=== PATIENT | male | born 1945 | race Caucasian/White ===

== ENCOUNTER → 2021-07-06 | Outpatient (CLI) | payer MEDICARE, BC ==
[~2021-07-06] MED LIST: ALBU2.5V5 NEB; ALLO300 PO; BUDE6HFA INH; CALCIUM; CYAN500 PO; ERGO400 PO; FINA5 PO; LORATADINE; METO50ER PO; MONT10T PO; RANTIDINE; TAMS.4ER PO; XARELTO20 MG PO
[2021-07-06 13:06] LABS: BASOPHILS ABSOLUTE AUTO 0.04 K/mm3 (0.00-0.23); BASOPHILS PERCENT AUTO 1 % (0-2); EOSINOPHILS ABSOLUTE AUTO 0.27 K/mm3 (0.00-0.68); EOSINOPHILS PERCENT AUTO 5 % (0-6); Hematocrit 45.6 % (37.0-53.0); Hemoglobin 15.3 g/dL (13.5-17.5); IMMATURE GRAN ABSOLUTE AUTO 0.02 K/mm3 (0.00-0.10); IMMATURE GRAN PERCENT AUTO 0 % (0-1); LYMPHOCYTES ABSOLUTE AUTO 1.38 K/mm3 (0.84-5.20); LYMPHOCYTES PERCENT AUTO 25 % (21-46); MONOCYTES ABSOLUTE AUTO 0.87 K/mm3 (0.16-1.47); MONOCYTES PERCENT AUTO 16 % (4-13); Mean Corpuscular HGB Conc 33.6 g/dL (31.5-36.5); Mean Corpuscular Volume 101 fL (80-100); Mean Platelet Volume 10.8 fL (9.1-12.4); NEUTROPHILS ABSOLUTE AUTO 2.95 K/mm3 (1.96-9.15); NEUTROPHILS PERCENT AUTO 53 % (41-73); Platelet Count 181 K/mm3 (150-400); RDW Standard Deviation 52.2 fL (35.1-46.3); White Blood Cell Count 5.53 K/mm3 (4.00-11.30)
[2021-07-06 13:16] LABS: Alanine Aminotransfer (ALT/SGP 35 U/L (12-78); Albumin, Blood 3.8 g/dL (3.4-5.0); Albumin/Globulin Ratio 1.2 (0.8-1.8); Alk Phos 82 U/L (40-126); Anion Gap 5 mmol/L (6-16); Aspartate Aminotrans (AST/SGOT 24 U/L (12-37); Bilirubin, Total 0.8 mg/dL (0.1-1.0); Blood Urea Nitrogen 21 mg/dL (8-24); Bun/Creatinine Ratio 22.3 (12.0-20.0); CO2, Blood 33 mmol/L (21-32); Calcium, Blood 9.8 mg/dL (8.5-10.1); Chloride, Blood 105 mmol/L (98-108); Creatinine, Blood 0.94 mg/dL (0.60-1.20); Globulin, Blood 3.2 g/dL (2.2-4.0); Glomerular Filtration Rate >60 (60-); Glucose, Blood 86 mg/dL (70-99); Potassium, Blood 4.2 mmol/L (3.5-5.5); Sodium, Blood 143 mmol/L (136-145)
[2021-07-06 13:19] LABS: Source, Urine Clean Catch
[2021-07-06 13:25] LABS: Bacteria Many /hpf; Red Blood Cells, Urine 50-100 /hpf (0-2); Squamous Epithelial Cells Few /hpf (Few); White Blood Cells, Urine TNTC /hpf (0-5)
== END | disposition home or self-care (01) ==
LOC: LAB SHORT 12:55
PROVIDERS: General Practice
DX: N39.0 Urinary tract infection, site not specified (principal)
CPT/HCPCS: 80053; 81015; 85025; 87077; 87086; 87186

== ENCOUNTER 2022-08-06 14:08 | Day surgery (SDC) | payer MEDICARE, BC ==
[~2022-08-06] VITALS: Ht 182.9 cm; Wt 110.8 kg
--- NOTE | 2022-08-06 14:42 | NUR ---
08/06/22 1442 Jamila Pearce TETRACAINE DROP PLAACED IN RIGHT EYE AT 1435 PLEDGET PLACED IN RIGTH EYE 1436
== END 2022-08-06 16:10 | disposition home or self-care (01) ==
LOC: ORSCSDS 14:08
PROVIDERS: Ophthalmology
PROC: 08RJ3JZ Replacement of Right Lens with Synthetic Substitute, Percutaneous Approach (ICD-10-PCS; principal; 2022-08-06 15:30)
DX: H25.13 Age-related nuclear cataract, bilateral (principal); H52.201 Unspecified astigmatism, right eye; H52.4 Presbyopia; I10 Essential (primary) hypertension; I25.10 Atherosclerotic heart disease of native coronary artery without angina pectoris; I48.20 Chronic atrial fibrillation, unspecified; Z95.0 Presence of cardiac pacemaker; E78.5 Hyperlipidemia, unspecified; G47.33 Obstructive sleep apnea (adult) (pediatric); J45.909 Unspecified asthma, uncomplicated; J44.9 Chronic obstructive pulmonary disease, unspecified; F32.A Depression, unspecified; Z79.01 Long term (current) use of anticoagulants; Z79.899 Other long term (current) drug therapy; Z87.891 Personal history of nicotine dependence
CPT/HCPCS: J2001; J2250; J3301; J7040; V2632

== ENCOUNTER 2022-08-13 13:37 | Day surgery (SDC) | payer MEDICARE, BC ==
[~2022-08-13] VITALS: Ht 182.9 cm; Wt 109.1 kg
--- NOTE | 2022-08-13 14:18 | NUR ---
08/13/22 1418 Jamila Pearce TETERACAINE DROP PLACED IN THE LEFT EYE AT 1415 PLEDGET PLACED IN LEFT EYE AT 1416 CALL LIGHT WITHIN REACH
--- NOTE | 2022-08-13 15:48 | NUR ---
08/13/22 1548 Dayami Zayas WHILE IN STEPDOWN WHEN TRANSFERRING FROM BED TO RECLINER PT STATED HE FELT DIZZY. PT SAT IN BED A FEW MINUTES AND THEN TRANSFERRED TO RECLINER WITH STAFF SBA AND ATE SOME CRACKERS AND RESTED IN RECLINER. AFTER A FEW MINUTES PT STATED HE STILL FELT A LITTLE DIZZY SO HIS BLOOD PRESSURE WAS TAKEN, IT WAS NEAR HIS PREVIOUS BLOOD PRESSURES AND PRE-OP BLOOD PRESSURES WITH A READING OF 149/90. ACCORDING TO PATIENT THIS HAPPENS SOMETIMES AND HE FELT DIZZY AFTER HIS SURGERY LAST WEEK TOO. RN INFORMED PATIENT THAT HE MIGHT FEEL SLEEPY OR DIZZY OVER THE NEXT 24 HRS LISTED ON HIS DISCHARGE PAPERWORK AND TO MAKE SURE TO MOVE SLOWLY ESPECIALLY WHEN RISING FROM A CHAIR OR OTHER MOVEMENTS. PATIENT VERBALIZED UNDERSTANDING AND EXPRESSED READINESS TO GO HOME. TAKEN TO CAR IN FOR SAFETY.
== END 2022-08-13 15:42 | disposition home or self-care (01) ==
LOC: ORSCSDS 13:37
PROVIDERS: Ophthalmology
PROC: 08RK3JZ Replacement of Left Lens with Synthetic Substitute, Percutaneous Approach (ICD-10-PCS; principal; 2022-08-13 15:00)
DX: H25.12 Age-related nuclear cataract, left eye (principal); H52.202 Unspecified astigmatism, left eye; H52.4 Presbyopia; Z96.1 Presence of intraocular lens; I10 Essential (primary) hypertension; I48.91 Unspecified atrial fibrillation; G47.33 Obstructive sleep apnea (adult) (pediatric); J44.9 Chronic obstructive pulmonary disease, unspecified; N40.0 Benign prostatic hyperplasia without lower urinary tract symptoms; F32.A Depression, unspecified; E66.9 Obesity, unspecified; Z68.32 Body mass index [BMI] 32.0-32.9, adult; Z79.01 Long term (current) use of anticoagulants; Z79.899 Other long term (current) drug therapy; Z87.891 Personal history of nicotine dependence
CPT/HCPCS: J2001; J2250; J3010; J3301; J7040; V2632

== ENCOUNTER 2023-10-13 07:51 | Day surgery (SDC) | payer MEDICARE, BC ==
[~2023-10-13 07:51] MED LIST changes: +Lactated Ringer's 1,000 ML IV SCH
[2023-10-13] MEDS ORDERED: Cymbalta20 MG PO (09:14)
[2023-10-13 09:15] VITALS: BP 137/99
[2023-10-13] MEDS ORDERED: PRAVASTATIN SOD10 MG PO (09:16)
[2023-10-13] MEDS ORDERED: propofoL 60 ML IV ONE (09:25)
--- NOTE | 2023-10-13 09:31 | NUR ---
10/13/23 0931 Lily Summers See Anesthesia record FROM DR. AGUIRRE
[2023-10-13] MEDS ORDERED: Lactated Ringer's 1,000 ML IV ONE (10:14)
[2023-10-13] MEDS ORDERED: Lactated Ringer's 1,000 ML IV SCH (10:20)
[2023-10-13 10:27] VITALS: BP 97/71
[2023-10-13 10:36] VITALS: BP 105/65
[2023-10-13 10:47] VITALS: BP 122/84
--- NOTE | 2023-10-13 10:58 | NUR ---
Discharge instructions reviewed with patient. Patient verbalizes understanding. Copy given to patient to take home. , Rod, at bedside. VSS. No c/o verbalized. Patient agrees to keep follow-up appointment and to resume xarelto in three days per Dr. Gar order.
[2023-10-13 11:03] VITALS: BP 123/85
--- NOTE | 2023-10-13 11:11 | NUR ---
UP TO DRESS. GAIT STEADY. PATIENT DENIES DIZZINESS UPON STANDING.
== END 2023-10-13 23:09 | disposition home or self-care (01) ==
LOC: ORSCMMR 07:51 → ORD 09:30 → ORSCMMR 23:09
PROVIDERS: Internal Medicine Gastroenterology
PROC: 0DBL8ZX Excision of Transverse Colon, Via Natural or Artificial Opening Endoscopic, Diagnostic (ICD-10-PCS; principal; 2023-10-13 09:30)
PROC: 0DBM8ZX Excision of Descending Colon, Via Natural or Artificial Opening Endoscopic, Diagnostic (ICD-10-PCS; principal; 2023-10-13 09:30)
PROC: 0DBK8ZX Excision of Ascending Colon, Via Natural or Artificial Opening Endoscopic, Diagnostic (ICD-10-PCS; principal; 2023-10-13 09:30)
DX: Z12.11 Encounter for screening for malignant neoplasm of colon (principal); Z86.010 Personal history of colon polyps; D12.4 Benign neoplasm of descending colon; D12.3 Benign neoplasm of transverse colon; D12.2 Benign neoplasm of ascending colon; I48.91 Unspecified atrial fibrillation; Z79.01 Long term (current) use of anticoagulants; J45.909 Unspecified asthma, uncomplicated; F32.A Depression, unspecified; N40.0 Benign prostatic hyperplasia without lower urinary tract symptoms; Z95.0 Presence of cardiac pacemaker; Z79.899 Other long term (current) drug therapy
CPT/HCPCS: 88305; J2704; J7120

== ENCOUNTER → 2024-08-06 | Outpatient (CLI) | payer MEDICARE, BC ==
[~2024-08-06] MED LIST changes: +Cymbalta20 MG PO; -Lactated Ringer's 1,000 ML IV SCH; +PRAVASTATIN SOD10 MG PO
[2024-08-06 11:49] LABS: BASOPHILS ABSOLUTE AUTO 0.05 K/mm3 (0.00-0.23); BASOPHILS PERCENT AUTO 1 % (0-2); EOSINOPHILS ABSOLUTE AUTO 0.45 K/mm3 (0.00-0.68); EOSINOPHILS PERCENT AUTO 9 % (0-6); Hematocrit 41.5 % (37.0-53.0); Hemoglobin 13.7 g/dL (13.5-17.5); IMMATURE GRAN ABSOLUTE AUTO 0.02 K/mm3 (0.00-0.10); IMMATURE GRAN PERCENT AUTO 0 % (0-1); LYMPHOCYTES PERCENT AUTO 27 % (21-46); MONOCYTES ABSOLUTE AUTO 0.64 K/mm3 (0.16-1.47); MONOCYTES PERCENT AUTO 13 % (4-13); Mean Corpuscular HGB 32.9 pg (26.0-34.0); Mean Corpuscular Volume 100 fL (80-100); Mean Platelet Volume 10.9 fL (9.1-12.4); NEUTROPHILS ABSOLUTE AUTO 2.56 K/mm3 (1.96-9.15); NEUTROPHILS PERCENT AUTO 50 % (41-73); Platelet Count 173 K/mm3 (150-400); RDW Coefficient Variation 15.2 % (11.7-14.2); RDW Standard Deviation 55.7 fL (35.1-46.3); Red Blood Cell Count 4.17 M/mm3 (4.30-5.90); White Blood Cell Count 5.12 K/mm3 (4.00-11.30)
[2024-08-06 11:59] LABS: Albumin, Blood 3.7 g/dL (3.4-5.0); Albumin/Globulin Ratio 1.2 (0.8-1.8); Bilirubin, Total 0.8 mg/dL (0.1-1.0); Bun/Creatinine Ratio 29.7 (12.0-20.0); Calcium, Blood 9.5 mg/dL (8.5-10.1); Creatinine, Blood 0.91 mg/dL (0.60-1.20); Globulin, Blood 3.2 g/dL (2.2-4.0); Potassium, Blood 4.3 mmol/L (3.5-5.5); Total Protein, Blood 6.9 g/dL (6.4-8.2)
== END ==
LOC: LAB SHORT 11:44
DX: R30.0 Dysuria (principal); R31.9 Hematuria, unspecified
CPT/HCPCS: 80053; 85025; 87086

== ENCOUNTER 2024-12-18 13:31 | Inpatient (IN) | payer MEDICARE, BC ==
[~2024-12-18] VITALS: Ht 180.3 cm; Wt 96.4 kg
[~2024-12-18 13:31] MED LIST changes: -BUDE6HFA INH; +SYMBICORT 160-4.6 GM INH
[2024-12-18] MEDS ORDERED: NS 1,000 ML IV SCH (14:15)
[2024-12-18] MEDS ORDERED: Ondansetron HCl 2 MG / ML 2ML Vial IV ONE (14:15)
[2024-12-18] MEDS ORDERED: Ampicillin Sod/Sulbactam Sod 3 GM in NS 100 ML IV ONE (14:15)
[2024-12-18 14:48] LABS: BASOPHILS ABSOLUTE AUTO 0.04 K/mm3 (0.00-0.23); BASOPHILS PERCENT AUTO 0 % (0-2); EOSINOPHILS PERCENT AUTO 0 % (0-6); Hematocrit 35.6 % (37.0-53.0); Hemoglobin 11.8 g/dL (13.5-17.5); IMMATURE GRAN ABSOLUTE AUTO 0.35 K/mm3 (0.00-0.10); IMMATURE GRAN PERCENT AUTO 2 % (0-1); LYMPHOCYTES ABSOLUTE AUTO 0.92 K/mm3 (0.84-5.20); LYMPHOCYTES PERCENT AUTO 4 % (21-46); MONOCYTES ABSOLUTE AUTO 1.29 K/mm3 (0.16-1.47); MONOCYTES PERCENT AUTO 6 % (4-13); Mean Corpuscular HGB 33.5 pg (26.0-34.0); Mean Corpuscular HGB Conc 33.1 g/dL (31.5-36.5); Mean Corpuscular Volume 101 fL (80-100); Mean Platelet Volume 10.7 fL (9.1-12.4); NEUTROPHILS ABSOLUTE AUTO 18.46 K/mm3 (1.96-9.15); NEUTROPHILS PERCENT AUTO 88 % (41-73); Platelet Count 161 K/mm3 (150-400); RDW Coefficient Variation 14.5 % (11.7-14.2); RDW Standard Deviation 53.3 fL (35.1-46.3); Red Blood Cell Count 3.52 M/mm3 (4.30-5.90); White Blood Cell Count 21.06 K/mm3 (4.00-11.30)
[2024-12-18 15:25] LABS: Albumin, Blood 3.1 g/dL (3.4-5.0); Albumin/Globulin Ratio 0.9 (0.8-1.8); Bilirubin, Total 1.7 mg/dL (0.1-1.0); Bun/Creatinine Ratio 19.4 (12.0-20.0); Calcium, Blood 9.2 mg/dL (8.5-10.1); Creatinine, Blood 1.03 mg/dL (0.60-1.20); Globulin, Blood 3.6 g/dL (2.2-4.0); Potassium, Blood 4.1 mmol/L (3.5-5.5); Total Protein, Blood 6.7 g/dL (6.4-8.2)
[2024-12-18 15:50] LABS: Source, Urine Clean Catch
[2024-12-18 15:58] LABS: Appearance, Urine Cloudy (Clear); Bilirubin, Urine Neg (Neg); Blood, Urine 5+ (Neg); Color, Urine Amber (P-Yellow); Glucose Qualitative, Urine Neg (Neg); Ketones, Urine 1+ (Neg); Leukocyte Esterase, Urine 1+ (Neg); Nitrite, Urine Neg (Neg); Protein, Urine 3+ (Neg); Specific Gravity, Urine 1.015 (1.003-1.022); Urobilinogen, Urine 2+ (Normal)
[2024-12-18 16:08] LABS: Influenza A, PCR NEGATIVE (NEGATIVE); Influenza B, PCR NEGATIVE (NEGATIVE); Resp Syncytial Virus, PCR NEGATIVE (NEGATIVE); SARS-Cov-2 (COVID-19) PCR, MMC NEGATIVE (NEGATIVE)
[2024-12-18 16:10] LABS: Bacteria Rare /hpf; Squamous Epithelial Cells Few /hpf (Few)
[2024-12-18 16:11] LABS: Red Blood Cells, Urine 50-100 /hpf (0-2)
[2024-12-18] MEDS ORDERED: Rivaroxaban 10 MG Tab PO SCH (18:00)
[2024-12-18] MEDS ORDERED: Lactated Ringer's 1,000 ML IV SCH (18:30)
[2024-12-18] MEDS ORDERED: Formoterol/Mometasone MDI 5/200 mcg 13 GM INH SCH (18:35)
--- NOTE | 2024-12-18 18:35 | NUR ---
PT ARRIVED TO UNIT VIA GURNEY FROM ED. HE AMBULATED TO BED W/MINIMAL ASSISTANCE. OBTAINED VS AND WEIGHT. ADMINISTERED MEDS ORDERED. PT IS A&Ox4 AND ABLE TO MAKE NEEDS KNOWN, HE IS SLIGHTLY HARD OF HEARING. HE IS ON RA W/O2 SATS >90%. FAMILY @ BEDSIDE. NO NEEDS OR CONCERNS NOTED @ THIS TIME. BED IN LOW POSITION, CALL LIGHT AND PERSONAL BELONGINGS IN REACH.
[2024-12-18 18:59] VITALS: BP 107/68
[2024-12-18] MEDS ORDERED: Ampicillin Sod/Sulbactam Sod 3 GM in NS 100 ML IV SCH (19:30)
[2024-12-18 19:40] VITALS: BP 106/54
[2024-12-18] MEDS ORDERED: Lactobacil 2-S.Thermo-Bifido 1 1 Cap PO SCH (21:00)
[2024-12-18] MEDS ORDERED: Pravastatin Sodium 20 MG Tab PO SCH (21:00)
[2024-12-18] MEDS ORDERED: Metoprolol Succinate 50 MG TABCR PO SCH (21:00)
[2024-12-18] MEDS ORDERED: Montelukast Sodium 10 MG Tab PO SCH (21:00)
[2024-12-18] MEDS ORDERED: DULoxetine HCL 20 MG Cap DR PO SCH (21:00)
[2024-12-19 00:14] VITALS: BP 113/71
[2024-12-19 03:14] VITALS: BP 135/87
[2024-12-19 04:28] LABS: BASOPHILS ABSOLUTE AUTO 0.05 K/mm3 (0.00-0.23); BASOPHILS PERCENT AUTO 0 % (0-2); EOSINOPHILS ABSOLUTE AUTO 0.06 K/mm3 (0.00-0.68); EOSINOPHILS PERCENT AUTO 0 % (0-6); Hematocrit 36.9 % (37.0-53.0); Hemoglobin 12.3 g/dL (13.5-17.5); IMMATURE GRAN ABSOLUTE AUTO 0.14 K/mm3 (0.00-0.10); IMMATURE GRAN PERCENT AUTO 1 % (0-1); LYMPHOCYTES ABSOLUTE AUTO 1.12 K/mm3 (0.84-5.20); LYMPHOCYTES PERCENT AUTO 6 % (21-46); MONOCYTES ABSOLUTE AUTO 1.64 K/mm3 (0.16-1.47); MONOCYTES PERCENT AUTO 9 % (4-13); Mean Corpuscular HGB 33.3 pg (26.0-34.0); Mean Corpuscular HGB Conc 33.3 g/dL (31.5-36.5); Mean Corpuscular Volume 100 fL (80-100); Mean Platelet Volume 10.8 fL (9.1-12.4); NEUTROPHILS ABSOLUTE AUTO 14.67 K/mm3 (1.96-9.15); NEUTROPHILS PERCENT AUTO 83 % (41-73); Platelet Count 157 K/mm3 (150-400); RDW Coefficient Variation 14.6 % (11.7-14.2); RDW Standard Deviation 54.1 fL (35.1-46.3); Red Blood Cell Count 3.69 M/mm3 (4.30-5.90); White Blood Cell Count 17.68 K/mm3 (4.00-11.30)
[2024-12-19 04:46] LABS: Bun/Creatinine Ratio 19.4 (12.0-20.0); Creatinine, Blood 1.03 mg/dL (0.60-1.20); Potassium, Blood 3.6 mmol/L (3.5-5.5)
--- NOTE | 2024-12-19 04:55 | NUR ---
SHIFT SUMMARY A/OX4, COOPERATIVE WITH CARE, VERBALIZES NEEDS, REMAINED AFEBRILE FOR ENTIRETY OF SHIFT. DENIES PAIN. ON CONTINUOUS CARDIAC MONITORING, IN AFIB AND ON XARELTO, RATE 80'S-100'S. PULSES PALPABLE. DENIES CHEST PAIN/PRESSURE. ON RA WHILE AWAKE, CPAP WHILE SLEEPING. USES CPAP AT HOME NIGHTLY. PT INSTRUCTED TO USE CALL LIGHT BEFORE ATTEMPTING TO AMBULATE.
--- NOTE | 2024-12-19 07:34 | NUR ---
ASSUMPTION NOTE: THIS RN TO ASSUME CARE OF PT. PATIENT IS UP IN THE BATHROOM WITH NURSING AID,DAUGHTER IS AT BEDSIDE. PATIENT RETURNED TO CHAIR TO GET READY FOR BREAKFAST. PATIENT HAS CALL LIGHT WITHIN REACH, BED IN LOWEST POSITION & STATING NOTHING ELSE IS NEEDED AT THIS TIME.
[2024-12-19 07:45] VITALS: BP 130/71
[2024-12-19] MEDS ORDERED: Allopurinol 300 MG Tab PO SCH (09:00)
[2024-12-19] MEDS ORDERED: Cholecalciferol 400 unit Tab PO SCH (09:00)
[2024-12-19] MEDS ORDERED: Cyanocobalamin 500 MCG Tab PO SCH (09:00)
[2024-12-19] MEDS ORDERED: Finasteride 5 MG Tab PO SCH (09:00)
[2024-12-19] MEDS ORDERED: Tamsulosin HCl 0.4 MG Cap PO SCH (09:00)
--- NOTE | 2024-12-19 11:03 | NUR ---
ROUNDED: MD HE ROUNDED, SPOKE WITH PT & FAMILY AT BEDSIDE. PT IS NOW MEDICAL WITHOUT TELE STATUS. PT AWARE AND ORDERS PLACED. PLAN CONTINEUS TO BE GIVE IV ANTIBIOTICS, MONITOR LABS & WAIT FOR CULTURES THAT ARE PENDING. WILL LOOK AT DISCHARGE TOMORROW.
[2024-12-19 16:44] VITALS: BP 131/79
--- NOTE | 2024-12-19 17:06 | NUR ---
SHIFT SUMMARY: PATIENT IS ALERT AND ORIETNED X4 & COOPERATIVE WITH HIS CARE, IS ABLE TO MAKE NEEDS KNOWN & USES CALL LIGHT APPROPRIATLELY. PATIENT IS SATITNG >92% ON ROOM AIR, WEARS CPAP AT NOC AND WHEN NAPPING. PT IS ON TELE SHOWING AFIB WITH RATE 80-90'S. AND DAUGHTER AT BEDSIDE. AWARE THAT PLAN WILL BE TO CONTINUE ANTIBIOTICS & WAIT FOR THE CULTURES TO COME BACK. LOOKING AT DISCHARGE TOMORROW. PT WALKED AROUND THE UNIT WITH STAFF AND DID GREAT TODAY, HEART RATE STAYED AROUND 90-100, DENIED FEELING SHORT OF BREATH OR LIGHT HEADED/DIZZY. PATIENT HAS CALL LIGHT WITHIN REACH, BED IN LOWEST POSITION & STATING NOTHING ELSE IS NEEDED AT THIS TIME.
--- NOTE | 2024-12-19 17:54 | NUR ---
MD CONTACTED: THIS RN CONTACTED MD REGARDING PATIENT AND FAMILY MEMBERS ASKING ABOUT HIS CPAP MACHINE THAT IS THROWING ERROS. THEY CONTACTED [facility] AND PER THE REP THEY STATED A NEW SCRIPT IS NEEDED FOR INSURANCE TO COVER IT. MD AWARE AND ASKED TO BE PASSED ONTO THE NEXT PROVIDER IN THE AM AND TO TALK WITH NURSING SPECIALIST ABOUT IT ALSO. THIS RN WILL PASS ALONG TO [facility].
[2024-12-19 20:10] VITALS: BP 111/75
[2024-12-19] MEDS ORDERED: NS 250 ML IV PRN (23:55)
[2024-12-20 04:11] LABS: BASOPHILS ABSOLUTE AUTO 0.01 K/mm3 (0.00-0.23); BASOPHILS PERCENT AUTO 0 % (0-2); EOSINOPHILS ABSOLUTE AUTO 0.11 K/mm3 (0.00-0.68); EOSINOPHILS PERCENT AUTO 1 % (0-6); Hematocrit 35.5 % (37.0-53.0); IMMATURE GRAN ABSOLUTE AUTO 0.05 K/mm3 (0.00-0.10); IMMATURE GRAN PERCENT AUTO 1 % (0-1); LYMPHOCYTES ABSOLUTE AUTO 1.04 K/mm3 (0.84-5.20); LYMPHOCYTES PERCENT AUTO 10 % (21-46); MONOCYTES ABSOLUTE AUTO 1.31 K/mm3 (0.16-1.47); MONOCYTES PERCENT AUTO 12 % (4-13); Mean Corpuscular HGB 33.8 pg (26.0-34.0); Mean Corpuscular HGB Conc 33.8 g/dL (31.5-36.5); Mean Corpuscular Volume 100 fL (80-100); Mean Platelet Volume 11.3 fL (9.1-12.4); NEUTROPHILS ABSOLUTE AUTO 8.12 K/mm3 (1.96-9.15); NEUTROPHILS PERCENT AUTO 76 % (41-73); Platelet Count 181 K/mm3 (150-400); RDW Coefficient Variation 14.6 % (11.7-14.2); RDW Standard Deviation 54.5 fL (35.1-46.3); Red Blood Cell Count 3.55 M/mm3 (4.30-5.90); White Blood Cell Count 10.64 K/mm3 (4.00-11.30)
[2024-12-20 04:34] LABS: Bun/Creatinine Ratio 20.4 (12.0-20.0); Calcium, Blood 8.8 mg/dL (8.5-10.1); Creatinine, Blood 1.03 mg/dL (0.60-1.20)
[2024-12-20 04:44] VITALS: BP 118/90
--- NOTE | 2024-12-20 06:29 | NUR ---
SHIFT SUMMARY: PT IS A&OX4, PLEASANT AND APPRECIATIVE OF CARE. VSS ON RA, CPAP ON WHILE ASLEEP. DENIES PAIN. TOLERATING A HEART HEALTHY DIET. PT IS SBA FOR LINE MANAGEMENT, OTHERWISE INDEPENDENT TO BR. VOIDING SMALL AMOUNTS OF TEA COLORED URINE IN URINAL. NO BM THIS SHIFT. PT TOOK A SHOWER AT BEGINNING OF SHIFT. BED IN LOWEST POSITION, CALL LIGHT WITHIN REACH. CALLS APPROPRIATELY AND IS ABLE TO ADVOCATE NEEDS EFFECTIVELY.
[2024-12-20 07:42] VITALS: BP 129/88
[2024-12-20] MEDS ORDERED: Amoxicillin500 MG PO (09:21)
[2024-12-20] MEDS ORDERED: PROBIOTIC1 EA13 PO (09:22)
== END 2024-12-20 10:21 | disposition home or self-care (01) | DRG 698 ==
LOC: ER 13:31 → PCU 17:29 → ERHOLD 17:29 → PCU 18:24
PROVIDERS: Emergency Medicine; ADMIT Family Medicine
DX: T83.592A Infection and inflammatory reaction due to indwelling ureteral stent, initial encounter (principal); A41.81 Sepsis due to Enterococcus; R65.20 Severe sepsis without septic shock; N10 Acute pyelonephritis; E87.20 Acidosis, unspecified; E87.1 Hypo-osmolality and hyponatremia; D62 Acute posthemorrhagic anemia; R31.0 Gross hematuria; I48.91 Unspecified atrial fibrillation; G47.33 Obstructive sleep apnea (adult) (pediatric); N40.0 Benign prostatic hyperplasia without lower urinary tract symptoms; M10.9 Gout, unspecified; F32.A Depression, unspecified; R31.29 Other microscopic hematuria; I10 Essential (primary) hypertension; Z96.0 Presence of urogenital implants; D64.9 Anemia, unspecified; E78.5 Hyperlipidemia, unspecified; Z79.51 Long term (current) use of inhaled steroids; Z79.899 Other long term (current) drug therapy; Z87.442 Personal history of urinary calculi; Z95.0 Presence of cardiac pacemaker; Z98.890 Other specified postprocedural states; Z99.89 Dependence on other enabling machines and devices; Z79.01 Long term (current) use of anticoagulants; Y84.9 Medical procedure, unspecified as the cause of abnormal reaction of the patient, or of later complication, without mention of misadventure at the time of the procedure
CPT/HCPCS: 0241U; 36415; 76770; 80048; 80053; 81001; 83605; 85025; 87040; 87077; 87086; 87186; 94660; 94762; 96365; 96375; 99284-25; A9270; J0295; J2405; J7030; J7050; J7120

== ENCOUNTER 2025-02-16 07:11 | Day surgery (SDC) | payer MEDICARE, BC ==
[~2025-02-16] VITALS: Ht 180.3 cm; Wt 96.2 kg
[~2025-02-16 07:11] MED LIST changes: +Amoxicillin500 MG PO; +B COMPLEX FORM0.4 MG PO; +CALCIUM PO; +FURO20 PO; +METF500 PO; +PROBIOTIC1 EA13 PO; +Vitamin B-12100 MCG PO; +Vitamin D1000 UNI1 PO; +[UNRECOGNIZED DRUG - OTHER] PO
[2025-02-16] MEDS ORDERED: CeFAZolin Sodium 1000 mg Vial ONE (07:28)
[2025-02-16] MEDS ORDERED: Heparin Sodium 1000 Units/ML 10ML MDV ONE (07:29)
[2025-02-16] MEDS ORDERED: NS 1,000 ML IV ONE ×2 (07:29→08:06)
[2025-02-16 07:51] VITALS: BP 123/83
[2025-02-16] MEDS ORDERED: NS 100 ML IV ONE (08:05)
[2025-02-16] MEDS ORDERED: CeFAZolin Sodium 2,000 MG VIAL ONE (08:05)
[2025-02-16] MEDS ORDERED: Midazolam HCl 1MG / ML 2ML Vial ONE (08:58)
[2025-02-16] MEDS ORDERED: FentaNYL Citrate 50 MCG/ML 2 ML Injection ONE (08:58)
--- NOTE | 2025-02-16 10:47 | NUR ---
PT BACK TO RECOVERY ROOM. SITTING UP IN RECLINER. GIVEN LUNCH. SPOUSE TO BEDSIDE. DRESSING CLEAN DRY AND INTCT. NO BLEEDING OR SWELLING NOTED.
[2025-02-16 10:48] VITALS: BP 121/93
[2025-02-16 11:00] VITALS: BP 128/82
--- NOTE | 2025-02-16 11:00 | NUR ---
DR ORO IN TO SPEAK TO PT AND CHECK WOUND. [employer] REP IN TO SEE PT.
[2025-02-16 11:15] VITALS: BP 119/78
[2025-02-16 11:30] VITALS: BP 111/72
[2025-02-16 11:35] VITALS: BP 115/76
--- NOTE | 2025-02-16 11:40 | NUR ---
PT VERBALIZE D/C INSTRUCTIONS. PT STEADY ON HIS FEET. PT DRESSED AND UP TO BR. FINISHED EATING LUNCH.
--- NOTE | 2025-02-16 11:59 | NUR ---
PT WHEELED OUT OF DEPT. D/C INSTRUCTIONS ARE CARRIED OUT BY SPOUSE.
== END 2025-02-16 12:00 | disposition home or self-care (01) ==
LOC: MHTC 07:11
DX: Z45.010 Encounter for checking and testing of cardiac pacemaker pulse generator [battery] (principal); I48.21 Permanent atrial fibrillation; I12.9 Hypertensive chronic kidney disease with stage 1 through stage 4 chronic kidney disease, or unspecified chronic kidney disease; N18.9 Chronic kidney disease, unspecified; Z79.01 Long term (current) use of anticoagulants; Z79.84 Long term (current) use of oral hypoglycemic drugs; Z79.899 Other long term (current) drug therapy
CPT/HCPCS: 33228; 99152; 99153; C1785; J0690; J1644; J2250; J3010; J7030; J7040